=== PATIENT | female | born 1990 | race African-American/Black ===

== ENCOUNTER 2022-02-13 20:13 | Emergency (ER) | payer OTHER ==
[~2022-02-13] VITALS: Ht 165.1 cm; Wt 65.8 kg
--- NOTE | 2022-02-13 21:00 | NUR ---
BIBSELF C/O RIGHT SHOULDER INJURY S/P FALL FROM [employer] ON FRIDAY. AWAKE AND ALERT X4 AMBULATORY WITH STEADY GAIT. V/S WNL
--- NOTE | 2022-02-13 21:13 | NUR ---
URINE COLLECTED AND SENT TO LAB
[2022-02-13] MEDS ORDERED: KETOROLAC TROMETHAMINE INJ 30 MG/ML VIAL ONE (21:14)
[2022-02-13] MEDS ORDERED: KETOROLAC TROMETHAMINE INJ 60 MG/2 ML VIAL IM ONE (21:30)
--- NOTE | 2022-02-13 21:33 | NUR ---
WAIVER SIGNED AND PLACED IN PT CHART
--- NOTE | 2022-02-13 21:34 | NUR ---
[employer] CAR REPA[employer] AT PT'S BEDSIDE
[2022-02-13] MEDS ORDERED: NAPR-1009 PO (22:02)
--- NOTE | 2022-02-13 22:24 | NUR ---
Patient discharged to home in stable condition. Written and verbal after care instructions given. Patient verbalizes understanding of instruction.
[2022-02-13 22:51] VITALS: BP 133/76
== END 2022-02-13 22:25 | disposition home or self-care (01) ==
LOC: ER 20:23
DX: S43.421A Sprain of right rotator cuff capsule, initial encounter (principal); M25.511 Pain in right shoulder; Z60.2 Problems related to living alone; W18.30XA Fall on same level, unspecified, initial encounter; Y93.A1 Activity, exercise machines primarily for cardiorespiratory conditioning; Y92.89 Other specified places as the place of occurrence of the external cause; Y99.0 Civilian activity done for income or pay
CPT/HCPCS: 99284; 96372; 73030; 84703; J1885